=== PATIENT | male | born 1930 | race Caucasian/White ===

== ENCOUNTER → 2016-09-29 | Outpatient (CLI) | payer MEDICARE | END | disposition home or self-care (01) | LOC: NM 08:24 | PROVIDERS: ATTEND Urology | DX: C61 Malignant neoplasm of prostate (principal); R63.4 Abnormal weight loss | CPT/HCPCS: 78306; A9503 ==

== ENCOUNTER 2017-10-16 20:46 | Emergency (ER) | payer MEDICARE ==
[~2017-10-16] VITALS: Ht 167.6 cm; Wt 72.2 kg
[2017-10-16] MEDS ORDERED: MIDAZOLAM HCL 2 MG/2 ML VIAL IV ONE ×2 (21:15→21:30)
[2017-10-16] MEDS ORDERED: MIDAZOLAM HCL 2 MG/2 ML VIAL ONE (21:21)
[2017-10-16] MEDS ORDERED: IOHEXOL-350 100 ML BOTTLE ONE (21:44)
[2017-10-16 22:04] LABS: HEMATOCRIT. 26.9 % (42.0-52.0); MEAN CORPUSCULAR HEMOGLOBIN 30.4 pg (28.0-32.0); MEAN CORPUSCULAR VOLUME 90.8 fL (80.0-94.0); MEAN PLATELET VOLUME 8.8 fl (7.4-10.4); PLATELET 125 x1000/uL (130-400); RED BLOOD CELL COUNT 2.96 mill/uL (4.7-6.1); RED CELL DISTRIBUTION WIDTH 14.7 % (11.6-14.6)
[2017-10-16 22:14] LABS: INR 1.1; PARTIAL THROMBOPLASTIN TIME 23.7 sec (23.4-31.0); PROTHROMBIN TIME 11.8 sec (9.4-11.6)
[2017-10-16 22:15] LABS: AMMONIA 42 uMol/L (<32)
[2017-10-16 22:16] LABS: ETHANOL BLOOD < 10 mg/dL
[2017-10-16 22:19] LABS: LDL CHOLESTEROL 68 mg/dL (5-100)
[2017-10-16 22:20] LABS: BG BASE EXCESS -1.9 mmol/L (-2.0-2.0); BG CARBOXYHEMOGLOBIN 0.3 % (0.5-1.5); BG DEOXYHEMOGLOBIN 3.9 % (0.0-5.0); BG FRACTION INSPIRED OXYGEN 28; BG HCO3 ACT 22.2 mmol/L (22.0-26.0); BG METHEMOGLOBIN 0.4 % (0.0-1.5); BG OXYGEN SATURATION 96.1 % (92.0-98.5); BG OXYHEMOGLOBIN 95.4 % (94.0-97.0); BG PCO2 35.2 mmHg (35.0-45.0); BG PH 7.417 (7.350-7.450); BG PO2 85.6 mmHg (75.0-100.0); BG SAMPLE SITE RIGHT RADIAL; BG TOTAL HEMOGLOBIN 11.5 g/dL (12.0-18.0); BG VENT MODE NASAL CANNULA
[2017-10-16 22:28] LABS: CHLORIDE 105 mEq/L (98-107)
[2017-10-16 22:49] LABS: PLATELET ESTIMATE DECREASED
[2017-10-16 23:00] LABS: CLARITY URINE CLEAR (CLEAR); COLOR URINE YELLOW (YELLOW); KETONES URINE NEGATIVE (NEGATIVE); LEUKOCYTE ESTERASE URINE NEGATIVE (NEGATIVE); NITRITE URINE NEGATIVE (NEGATIVE); OCCULT BLOOD URINE TRACE (NEGATIVE); PH URINE 7.5 (4.5-8.0); PROTEIN URINE NEGATIVE (NEGATIVE); SPECIFIC GRAVITY URINE 1.026 (1.005-1.030); UROBILINOGEN URINE 0.2 E.U./dL (0.2-1.0)
[2017-10-16 23:12] LABS: *BARBITURATES SCREEN URINE NEGATIVE (NEGATIVE); *BENZODIAZEPINES SCREEN URINE PRESUMTIVE POSITIVE (NEGATIVE); *COCAINE SCREEN URINE NEGATIVE (NEGATIVE); METHADONE URINE SCREEN NEGATIVE (NEGATIVE); OPIATES URINE SCREEN NEGATIVE (NEGATIVE); PHENCYCLIDINE URINE SCREEN NEGATIVE (NEGATIVE)
[2017-10-16 23:13] LABS: *AMPHETAMINES SCREEN URINE NEGATIVE (NEGATIVE); CANNABINOID URINE SCREEN NEGATIVE (NEGATIVE)
[2017-10-16] MEDS ORDERED: FUROSEMIDE 20MG/2ML VIAL IVP ONE (23:15)
[2017-10-17 00:23] VITALS: BP 132/55
[2017-10-17] MEDS ORDERED: ASPIRIN 325MG EC TABLET PO ONE (00:30)
== END 2017-10-17 00:41 | disposition short-term general hospital (02) ==
LOC: ER 20:57 → CANBEDREQ 10-17 01:51
DX: G93.40 Encephalopathy, unspecified (principal); I77.74 Dissection of vertebral artery; I65.02 Occlusion and stenosis of left vertebral artery; N28.9 Disorder of kidney and ureter, unspecified; E11.65 Type 2 diabetes mellitus with hyperglycemia; F03.90 Unspecified dementia, unspecified severity, without behavioral disturbance, psychotic disturbance, mood disturbance, and anxiety; Z86.73 Personal history of transient ischemic attack (TIA), and cerebral infarction without residual deficits; Z85.46 Personal history of malignant neoplasm of prostate
CPT/HCPCS: 36415; 36600; 51702; 70450; 70496; 71045; 80053; 80305; 81003; 82140; 82375; 82805; 83690; 83721; 83880; 84484; 85025; 85610; 85730; 86850; 86900; 86901; 93005; 96374; 96375; 99291; G0482; J1940; J2250; Q9967

== ENCOUNTER 2017-11-26 16:02 | Emergency (ER) | payer MEDICARE ==
[~2017-11-26] VITALS: Ht 162.6 cm; Wt 69.0 kg
[2017-11-26 18:29] LABS: BASOPHILS % 1.3 % (0.0-2.0); EOSINOPHILS % 3.5 % (0.0-5.0); HEMOGLOBIN. 9.7 g/dL (14.0-18.0); LYMPHOCYTES % 24.8 % (20.0-50.0); MEAN CORPUSCULAR HEMOGLOBIN 30.6 pg (28.0-32.0); MEAN CORPUSCULAR VOLUME 91.2 fL (80.0-94.0); MEAN PLATELET VOLUME 9.2 fl (7.4-10.4); MONOCYTES % 9.1 % (2.0-8.0); NEUTROPHILS % 61.3 % (40.0-76.0); PLATELET 115 x1000/uL (130-400); RED BLOOD CELL COUNT 3.18 mill/uL (4.7-6.1); RED CELL DISTRIBUTION WIDTH 14.9 % (11.6-14.6)
[2017-11-26 18:32] LABS: CHLORIDE 109 mEq/L (98-107)
[2017-11-26 18:35] LABS: INR 1.1; PARTIAL THROMBOPLASTIN TIME 23.2 sec (23.4-31.0); PROTHROMBIN TIME 11.1 sec (9.4-11.6)
[2017-11-26 20:27] VITALS: BP 161/46
== END 2017-11-26 20:42 | disposition home or self-care (01) ==
LOC: ER 17:25
DX: D64.9 Anemia, unspecified (principal); I10 Essential (primary) hypertension; F03.90 Unspecified dementia, unspecified severity, without behavioral disturbance, psychotic disturbance, mood disturbance, and anxiety; Z85.46 Personal history of malignant neoplasm of prostate; Z86.73 Personal history of transient ischemic attack (TIA), and cerebral infarction without residual deficits
CPT/HCPCS: 36415; 71045; 80053; 85025; 85610; 85730; 86850; 86900; 93005; 99285